=== PATIENT | male | born 1960 | race Caucasian/White ===

== ENCOUNTER 2016-11-01 10:40 | Emergency (ER) | payer OTHER ==
[~2016-11-01] VITALS: Ht 170.2 cm; Wt 97.5 kg
[2016-11-01 10:45] VITALS: BP 141/73
[2016-11-01] MEDS ORDERED: INDERAL LA60 M1 PO (10:59)
--- NOTE | 2016-11-01 11:01 | ED UPPER/LOWER EXTREMITY COMPL ---
History of Present Illness General Chief Complaint: Lower Extremity Problems Stated Complaint: knee pain Source: patient Exam Limitations: no limitations Vital Signs & Intake/Output Vital Signs & Intake/Output Vital Signs Date Time Temp Pulse Resp B/P B/P Pulse O2 O2 Flow FiO2 Mean Ox Delivery Rate 11/01 1045 97.2 80 20 141/73 98 Room Air Allergies Coded Allergies: No Known Allergies (11/01/16) Reconcile Medications Propranolol LA (Inderal LA) 60 MG CAP.SA.24H 1 CAP PO DAILY HEART (Reported) Triage Note: PT PRESENTS TO ER FROM WORK S/P BEING HIT IN THE LEFT KNEE WITH A DOOR. PT C/O OF A 7/[address] PAIN [address] LEFT KNEE. DR. HENRIQUEZ AT BEDSIDE PT MEDICATED WITH 800MG PO IBUPROFEN FOR PAIN. ICE APPLIED TO KNEE. PT WAITING XRAY Triage Nurses Notes Reviewed? 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 Skin is intact no laceration has occurred. Patient states that knee bending and ambulation make worse. Patient was given ibuprofen prior to being evaluated. Denies any significant knee injuries or surgeries in the past. Denies any hip pain or ankle pain. (APOORVA PYLE) Past History Travel History Traveled to [place] past 21 day No Medical History Any Pertinent Medical History? none Neurological: NONE EENT: NONE Respiratory: NONE Gastrointestinal: NONE Hepatic: NONE Renal: NONE Musculoskeletal: NONE Psychiatric: NONE Endocrine: NONE Surgical History Surgical History: non-contributory Psychosocial History What is your primary language Russian Tobacco Use: Never used Family History Hx Contributory? No (APOORVA PYLE) Review of Systems Review of Systems Constitutional: Reports: no symptoms. EENTM: Reports: no symptoms. Respiratory: Reports: no symptoms. Cardiovascular: Reports: no symptoms. Gastrointestinal/Abdominal: Reports: no symptoms. Genitourinary: Reports: no symptoms. Musculoskeletal: Reports: see HPI, joint pain, joint swelling. Skin: Reports: no symptoms. Neurological/Psychological: Reports: no symptoms. Hematologic/Endocrine: Reports: no symptoms. Immunological: Reports: no symptoms. All Other Systems: Reviewed and Negative (APOORVA PYLE) Physical Exam Physical Exam General Appearance: no apparent distress, alert, comfortable Neurologic/Tendon: normal sensation, normal motor functions, normal tendon functions, responds to pain, no evidence tendon injury, no pulse deficit Skin: intact, normal color, warm/dry Comments: Well-developed well-nourished no apparent distress. HEENT: Atraumatic, extraocular motion intact Neck: Supple, no lymphadenopathy Back: Nontender Respiratory: No respiratory distress Extremities: Left hip normal inspection nontender full active range of motion patient able to perform straight leg raise Left knee normal inspection noted point tenderness to the inferior quadriceps region and patellar region Decreased active range of motion noted with 45 of flexion full extension noted negative valgus stress test negative varus stress test negative anterior drawer test negative posterior drawer test Neuro: Alert and oriented x3 Psych: Mood affect normal, normal memory normal judgment. (APOORVA PYLE) Progress Differential Diagnosis: arterial insufficiency, compartment syndrome, contusion, dislocation, DVT, fracture, gout, septic arthritis, sprain, tendon injury Plan of Care: Orders Procedure Date/time Status XRY-KNEE COMPLETE LEFT 11/01 1042 Active Patient had no concerns of fracture on x-rays Evgeny wrap was applied to left knee pre-and post-neurovascular was intact Crutches were advised for weightbearing as tolerated status No concerns of patellar subluxation (APOORVA PYLE) Diagnostic Imaging: Viewed by Me: Radiology Read. Radiology Impression: no fracture Comments: PATIENT: SANIYA BERRY PRESENT AGE: 56 PATIENT ACCOUNT NO: [id number] : 58 LOCATION: [facility] ORDERING PHYSICIAN: APOORVA RICH SERVICE DATE: 11/01/16 EXAM TYPE: RAD - XRY-KNEE COMPLETE LEFT EXAMINATION: XR KNEE, LEFT CLINICAL INFORMATION: Left knee pain COMPARISON: None TECHNIQUE: 5 views of the left knee. FINDINGS: Trace joint effusion. Minor 3 compartment osteoarthritis predominating in the patellofemoral joint. No fracture. Soft tissue calcifications in the tibial fibular ligament. IMPRESSION: Trace joint effusion. Osteoarthritis. DICTATED BY: KAMINI JEFFERY MD DATE/TIME DICTATED:11/01/161120 BOARD OF DIRECTORS:GABBY (APOORVA PYLE) Departure Departure Disposition: HOME OR SELF CARE Condition: Stable Clinical Impression Primary Impression: Left knee pain Referrals: KLAUSER MD,DWAYNE PATIENT HAS NO PRIMARY CARE DR (PCP/Family) Additional Instructions: As discussed begin to apply ice to the area 20 minutes every 2 hours, continue [id number] ibuprofen for pain and inflammation. Begin using the crutches UNTIL YOU CAN walk without pain. If symptoms worsen return to emergency room. If no better in one week follow up with orthopedic Dr. Cruz for further evaluation treatment On Friday follow-up with [facility] occupational medicine Departure Forms: Customer Survey General Discharge Information (APOORVA PYLE) PA/DE ICER INSTALLER Co-Sign Statement Statement: ED Attending supervision documentation- [X] I saw and evaluated the patient. I have also reviewed all the pertinent lab results and diagnostic results. I agree with the findings and the plan of care as documented in the PA's/DE ICER INSTALLER's documentation. [] I have reviewed the ED Record and agree with the PA's/DE ICER INSTALLER's documentation. [] Additions or exceptions (if any) to the PAs/DE ICER INSTALLER's note and plan are summarized below: [] (MELITON HENRIQUEZ DO
--- NOTE | 2016-11-01 11:27 | RADIOLOGY REPORT ---
EXAMINATION: XR KNEE, LEFT CLINICAL INFORMATION: Left knee pain COMPARISON: None TECHNIQUE: 5 views of the left knee. FINDINGS: Trace joint effusion. Minor 3 compartment osteoarthritis predominating in the patellofemoral joint. No fracture. Soft tissue calcifications in the tibial fibular ligament. IMPRESSION: Trace joint effusion. Osteoarthritis.
== END 2016-11-01 11:53 ==
LOC: ERH 10:40
DX: M25.562 Pain in left knee (principal)
CPT/HCPCS: 73562-LT

== ENCOUNTER → 2016-12-03 | Day surgery (SDC) | payer OTHER ==
[~2016-12-03] VITALS: Ht 172.7 cm; Wt 99.8 kg
[~2016-12-03] MED LIST: INDERAL LA60 M1 PO
--- NOTE | 2016-12-04 08:24 | Operative Report ---
Operative/Inv Procedure Report Surgery Date: 12/03/16 Name of Procedure: Left quadriceps tendon repair Pre-Operative Diagnosis: Left quadriceps tendon rupture Post-Operative Diagnosis: Left quadriceps tendon rupture Estimated Blood Loss: 100mL Surgeon/Solder Making Supervisor: DONA LOPEZ,Dale Persaud PA-C Anesthesia: general endotracheal tube IV Fluids: 1200mL Drains: None Specimens: None Tourniquet: 29min Complications: None Condition: Stable Operative/Procedure Note Note: INDICATION FOR PROCEDURE: Giovani Crum is a 56 year-old male who sustained a left knee injury at work on . He was evaluated in the Emergency Dept and then attempted to participate in physical therapy. He was able to weight bear, but continued to have pain and dysfunction of the left leg. He was sent for an MRI 3 weeks after the initial injury, which showed a left distal quadriceps rupture with minimal retraction. He presented to the Orthopedic clinic on 11/25/16, where his injury was reviewed and his treatment options were discussed. After discussing the risks and benefits of operative repair with the patient and his , he elected to proceed with surgery. OPERATIVE REPORT: Mr. Crum arrived at [facility] on 12/03[facility]16. He was met in the pre- operative area, where his medical history was reviewed and the operative extremity was marked. He was then taken into the operating room and placed supine on the OR table. A time-out procedure was performed in the which the patient, the operative extremity, and the planned procedure were verified. The patient was then induced under general anesthesia. A non-sterile tourniquet was applied to the left upper thigh and a bump placed under the left hip for positioning. Care was taken to pad all bony prominences. Alecia-operative ancef was administed. An SCD was applied to the right lower leg, but no additional VTE chemoprophylaxis was administered. The tourniquet was not inflated at the beginning of the case. A medial parapatellar incision was made from the palpable defect in the quad to the inferior pole of the patella. This was taken through the skin and subcutaneous tissue, down to the quadriceps tendon. Flaps were raised both medially and laterally. The medial and lateral retinaculum remained intact; the defect in the quadriceps tendon was palpable with several centimeters of retraction and overlying fibrinous tisssue. The distal tendon was identified and poor quality tissue was debrided. The medial and lateral retinculum was divided 4-5 centimeters to assist with excursion. A #5 fiberwire suture was sewn throught the medial quad tendon approximately 7cm distal to proximal using a Jupiter suture. This was repeated on the lateral side. This allow the tendon to reapproximate to the superior patella. The wound was copiously irrigated with normal saline with bacitracin. The superior pole of the patella was debrided of fibrinous tissue and the bone was debrided down a cancellous base. Using a 2.0mm drill bit, three longitudinal tunnels were made in the patella (central, medial, and lateral). Small longitudinal incisions were made in the patellar tendon to allow for passage of a hewson suture passer, followed by a looped nylon suture. The quad tendon sutures were then passed through the loops and through the tunnles - the central two sutures through the middle tunnel. The sutures were then pulled under the tendon to their respective sides and tied. This avoided any anterior knots. The wound was again irrigated. The knee was taken through passive flexion to approximately 80 deg before gapping was noted at the level of the repair. The tourniquet was then inflated to 300mmHg for the closure, and released after 30min. A #2 ticron suture was used to oversewn the residual tendon of the patella to the quad tendon; the suture was also used to repair the retinaculum both medially and laterally. A #1 vicryl was used to close the small longitudinal splits in the patellar tendon. The wound was again irrigated. The wound was closed in layers using #0 vicryl, #2-0 vicryl, and interrupted #3-0 nylon for skin. The incision was dressing with xeroform, gauze, ABD pad, and secured with sterile webril. The continuous flow ice machine pad was incorporated into the dressing and all was secured with an MICHELE wrap from foot to mid-thigh. A drop- lock brace locked in extension as provided. The patient was then extubated and taken from the OR to the recovery room
== END ==
LOC: STS 03:06
DX: S76.112A Strain of left quadriceps muscle, fascia and tendon, initial encounter (principal); X58.XXXA Exposure to other specified factors, initial encounter
CPT/HCPCS: J0131; J0690; J1100; J1885; J2250; J2405

== ENCOUNTER 2017-12-07 08:39 | Emergency (ER) | payer OTHER ==
[~2017-12-07] VITALS: Ht 172.7 cm; Wt 98.9 kg
[~2017-12-07 08:39] MED LIST changes: +ALEVE220 M2 PO; +PRILOSEC OTC20 M1 PO
[2017-12-07 09:13] LABS: ABSOLUTE BASOPHIL COUNT 0 /CUMM (0.0-0.2); ABSOLUTE EOSINOPHIL COUNT 0.1 /CUMM (0.0-0.7); ABSOLUTE GRANULOCYTE CT 4.6 /CUMM (1.4-6.5); ABSOLUTE LYMPH COUNT 1.9 /CUMM (1.2-3.4); ABSOLUTE MONOCYTE COUNT 0.5 /CUMM (0.10-0.60); BASOPHIL % 0.6 % (0.0-2.0); EOSINOPHIL % 1.6 % (0-5); GRANULOCYTE % 64.5 % (42.2-75.2); HEMATOCRIT 46.5 % (42-52); MEAN CORPUSCULAR HGB 31.7 PG (27.0-31.0); MEAN CORPUSCULAR HGB CONC 34.2 G/DL (33.0-37.0); MEAN CORPUSCULAR VOLUME 92.6 FL (80.0-94.0); PLATELET COUNT 232 /CUMM (130-400); RBC DISTRIBUTION WIDTH 13.4 % (11.5-14.5); RED BLOOD CELL CT 5.02 /CUMM (4.70-6.10); WHITE BLOOD CELL COUNT 7.1 /CUMM (4.8-10.8)
--- NOTE | 2017-12-07 09:17 | ED CARDIAC/CP/PALPITATIONS ---
History of Present Illness General Chief Complaint: General Adult Stated Complaint: ? SVT Source: patient Exam Limitations: no limitations Vital Signs & Intake/Output Vital Signs & Intake/Output Vital Signs Date Time Temp Pulse Resp B/P B/P Pulse O2 O2 Flow FiO2 Mean Ox Delivery Rate 12/07 0955 97.8 86 18 111/70 99 Room Air 12/07 0918 98 Nasal Cannula 12/07 0908 164 18 133/82 12/07 0843 97.7 170 20 126/91 97 Room Air Allergies Coded Allergies: No Known Allergies (11/01/16) Reconcile Medications Naproxen Sodium (Aleve) 220 MG TABLET 1 TAB PO BID PAIN (Reported) Omeprazole Magnesium (Prilosec Otc) 20 MG TABLET.DR 1 TAB PO DAILY ACID REFLUX (Reported) Propranolol LA (Inderal LA) 60 MG CAP.SA.24H 1 CAP PO DAILY TREMOR (Reported) Triage Note: PT STATES HE HAS HAD PERSISTANT TACHYCARDIA SINCE 0715 THIS AM. PT WITH HX OF SUCH. PT STATSE HE IS HAVING TIGHTNESS IN THE MIDDLE OF HIS CHEST. PT DENIES SOB BUT STATES HE IS FEELING LIGHT HEADED. Triage Nurses Notes Reviewed? yes HPI: 57-year-old male with past medical history of SVT and knee surgery came to ED with chief complaint of chest tightness since this morning. According to patient he was in his usual state of health till 7:50am when he started to experience chest tightness that was continuous without association of palpitations. Patient was already aware that he has a history of SVTs and whenever he has that kind of sensation he used he used to do vagal maneuver. Patient tried vagal maneuvers this morning 3 times a didn't work that's why he came to ED. Patient denied palpitation, nausea, vomiting, lightheadedness, diarrhea, constipation, abdominal pain and dysuria. Patient has echocardiogram done in October 2015 that showed ejection fraction more than 55%. (Ryne Belle MD) Past History Travel History Traveled to [place] past 21 day No Medical History Neurological: TREMOR EENT: NONE Cardiovascular: TACHARCARDIA Respiratory: NONE Gastrointestinal: NONE Hepatic: NONE Renal: NONE Musculoskeletal: NONE Psychiatric: NONE Endocrine: NONE Surgical History Surgical History: non-contributory Psychosocial History What is your primary language Georgian Tobacco Use: Never used ETOH Use: denies use Illicit Drug Use: denies illicit drug use (Ryne Belle MD) Medical History Any Pertinent Medical History? see below for history Family History Hx Contributory? No (Kaleb LOPEZ,Julio Cesar Darby) Review of Systems Review of Systems Constitutional: Denies: chills, fever, weakness. EENTM: Reports: no symptoms. Respiratory: Denies: cough, short of breath, sputum production, wheezing. Cardiovascular: Reports: chest pain. Denies: palpitations, syncope. GI: Denies: abdominal pain, diarrhea, nausea, vomiting. Genitourinary: Reports: no symptoms. Musculoskeletal: Reports: no symptoms. Neurological/Psychological: Reports: no symptoms. (Ryne Belle MD) Physical Exam Physical Exam General Appearance: well developed/nourished, no apparent distress, alert, awake Head: atraumatic, normal appearance Eyes: Bilateral: normal appearance, PERRL, EOMI. Ears, Nose, Throat: normal pharynx Neck: normal inspection, supple, full range of motion Respiratory: normal breath sounds, chest non-tender Cardiovascular: regular rate/rhythm, tachycardia Gastrointestinal: normal bowel sounds, soft, non-tender Extremities: normal inspection (Ryne Belle MD) Core Measures ACS in differential dx? No CVA/TIA Diagnosis No Sepsis Present: No Sepsis Focused Exam Completed? No (Kaleb LOPEZ,Julio Cesar Darby) Progress Differential Diagnosis: AMI, atrial fibrillation, PSVT, PVCs/PACs, unstable angina Plan of Care: Orders Procedure Date/time Status Telemetry/Flow Trader 12/07 0937 Active EKG 12/07 0900 Active THYROID STIMULATING HORMONE 12/07 0859 Active MAGNESIUM 12/07 0859 Active FREE T4 12/07 0859 Active TROPONIN LEVEL 12/07 0843 Active CBC WITHOUT DIFFERENTIAL 12/07 0843 Complete BASIC ELECTROLYTES PLUS BUN&CR 12/07 0843 Active EKG 12/07 0841 Active Laboratory Tests 12/07/17 0859: Anion Gap 17 H, Estimated GFR > 60, BUN/Creatinine Ratio 14.4, Magnesium 2.1, Troponin I < 0.01, TSH Pending, Free T4 1.06, CBC w Diff NO MAN DIFF REQ, RBC 5.02, MCV 92.6, MCH 31.7 H, MCHC 34.2, RDW 13.4, MPV 9.0, Gran % 64.5, Lymphocytes % 26.2, Monocytes % 7.1, Eosinophils % 1.6, Basophils % 0.6, Absolute Granulocytes 4.6, Absolute Lymphocytes 1.9, Absolute Monocytes 0.5, Absolute Eosinophils 0.1, Absolute Basophils 0 12/07/17 0856: Magnesium Cancelled, TSH Cancelled, Free T4 Cancelled Initial ED EKG: normal axis, no ST T wave changes, SVT Comments: EKG was done in ED and patient was found to have supraventricular tachycardia with HR 170/min and QTC 404. Patient was attached to gambling monitor and IV line was maintained. Patient was given one portion of 6 mg adenosine and during that time his EKG was done. She was found to be in sinus rhythm after that. We will monitor him and meanwhile we will do troponin, magnesium and TSH with free T4. If patient don't go back to SVT and he remained hemodynamically stable we will discharge him depending upon his lab results. Patient remained in sinus rhythm after the adenosine therapy. His troponin came back normal and his repeat EKG showed no ST or T-wave changes and he is in sinus rhythm. We will discharge the patient. Patient is asked to come back to ED if he experienced any chest pain or palpitations. (Yoshi LOPEZ,Ryne) Repeat EKG: changed (NSR WITH PAC) Rhythm Strip: normal sinus rhythm (Julio Cesar Manuel MD) Departure Departure Disposition: HOME OR SELF CARE Condition: Stable Referrals: Patient Has No Primary Care Dr Additional Instructions: Please follow UP with primary care physician in one week. Please follow-up with your shotgun shell loading machine operator in 1 week. If you experience any chest pain or palpitations please come back to ED. Departure Forms: Customer Survey General Discharge Information (Yoshi LOPEZ,Ryne) Departure Clinical Impression Primary Impression: Paroxysmal SVT (supraventricular tachycardia) Resident Co-Sign Statement Statement: ED Attending supervision documentation- [X] I saw and evaluated the patient. I have also reviewed all the pertinent lab results and diagnostic results. I agree with the findings and the plan of care as documented in the Resident's documentation. [X] I have reviewed the ED Record and agree with the Resident's documentation. [] Additions or exceptions (if any) to the Resident's note and plan are summarized below: [] (Julio Cesar Manuel MD) Critical Care Note Critical Care Note Critical Care Time: non-applicable (Julio Cesar Manuel MD)
[2017-12-07 09:55] VITALS: BP 111/70
== END 2017-12-07 10:20 ==
LOC: ERH 08:39
PROVIDERS: Student in an Organized Health Care Education/Training Program
DX: I47.1 Supraventricular tachycardia (principal)
CPT/HCPCS: 82436; 93005; 93010; 96374; 99291; J0153